=== PATIENT | male | born 1995 | race American Indian/Alaskan Native ===

== ENCOUNTER 2017-06-02 19:33 | Emergency (ER) | payer MEDICARE, OTHER ==
[2017-06-02 19:47] VITALS: BP 141/84; PULSE 80; TEMP 98.1; O2SAT 99
--- NOTE | 2017-06-02 19:59 | C.PDOC ---
History Of Present Illness 21 y/o male c/o funny sensation in penis for a few days with clear discharge. pt had unprotected sex several weeks ago. hx gonorrhea in past. no fever or chills. pt also reports skin lesions in pubic area for several months. Time Seen by Provider: 06/02/17 19:56 Chief Complaint (Nursing): Male Genitourinary History/Exam Limitations: no limitations Onset/Duration Of Symptoms: Days Current Symptoms Are (Timing): Still Present Severity: Mild Quality Of Discomfort: Other (tingling) Associated Symptoms: denies: Fever, Chills, Urinary Symptoms Past Medical History Reviewed: Historical Data, Nursing Documentation, Vital Signs Vital Signs: Last Vital Signs Temp 98.1 F 06/02/17 19:43 Pulse 80 06/02/17 19:43 Resp 20 06/02/17 21:39 BP 141/84 06/02/17 19:43 Pulse Ox 99 06/02/17 21:28 - Medical History PMH: Sexually Transmitted Disease (gonorrhea) Denies: Diabetes, Hepatitis, HIV, HTN, Seizures Family History: States: Unknown Family Hx - Social History Hx Alcohol Use: Yes Hx Substance Use: Yes - Immunization History Hx Tetanus Toxoid Vaccination: No Hx Influenza Vaccination: Yes Hx Pneumococcal Vaccination: No Review Of Systems Constitutional: Negative for: Fever, Chills Gastrointestinal: Negative for: Nausea, Vomiting, Abdominal Pain Genitourinary: Positive for: Penile Discharge. Negative for: Dysuria, Frequency Skin: Positive for: Lesions (pubic region) Physical Exam - Physical Exam Appears: Non-toxic, No Acute Distress Skin: Warm, Dry, Other (3 1-2 mm raised possible skin tags in pubic hair, 2 on right side, 1 on left, chaperoned by MAKENZIE Melendez. ) Gastrointestinal/Abdominal: Soft, No Tenderness Male Genital: No Testicular Tenderness, No Testicular Swelling, No Inguinal Tenderness, No Inguinal Swelling, Circumcised, Other (clear urthethral discharge. chaperoned by MAKENZIE Melendez) ED Course And Treatment O2 Sat by Pulse Oximetry: 99 Medical Decision Making Medical Decision Making: pt with penile discharge after unprotected sex, will treat for sti. pt with skin lesions in pubic area, not vesciular, f/u med clinic. Disposition Counseled Patient/Family Regarding: Diagnosis, Need For Followup - Disposition Referrals: [facility] [Outside] Disposition: HOME/ ROUTINE Disposition Time: 21:27 Condition: GOOD Additional Instructions: Please follow up in medical clinic or with your doctor to have further evaluation for skin lesions. Recommend protected sex - always use condoms. Instructions: Safe Sex (ED), Nonspecific Urethritis in Men (ED) Forms: [facility] (Setswana), General Discharge Instructions - Clinical Impression Clinical Impression: Urethritis
[2017-06-02] MEDS ORDERED: cefTRIAXone (Rocephin) 250 mg Inj IM STA (20:12)
[2017-06-02 20:18] LABS: URINE BILIRUBIN NEGATIVE (NEGATIVE); URINE BLOOD NEGATIVE (NEGATIVE); URINE CLARITY Clear (Clear); URINE GLUCOSE (UA) NORMAL (Normal); URINE LEUKOCYTE ESTERASE NEG Leu/uL (Negative); URINE NITRATE NEGATIVE (NEGATIVE); URINE PROTEIN 1+ mg/dL (NEGATIVE)
[2017-06-02 20:26] LABS: URINE COLOR YELLOW (YELLOW)
[2017-06-02 21:39] VITALS: RESP 20
== END 2017-06-02 21:38 | disposition home or self-care (01) ==
LOC: C.ER 19:33
DX: N34.2 Other urethritis (principal)
CPT/HCPCS: 81001; 87086; 87491; 87591; 96372; 99283; J0696

== ENCOUNTER 2017-06-25 22:11 | Inpatient (IN) | payer MEDICARE, MEDICAID ==
[2017-06-25 23:28] LABS: BASO % 0.2 % (0.0-2.0); EOS % 0.3 % (0.0-4.0); HEMOGLOBIN 13.5 g/dL (12.0-18.0); LYMPH % 35.9 % (20.0-40.0); MEAN CELL VOLUME 84.5 fL (80.0-94.0); MEAN CORPUSCULAR HEMOGLOBIN 27.8 pg (27.0-31.0); MEAN CORPUSCULAR HGB CONC 32.9 g/dL (33.0-37.0); MEAN PLATELET VOLUME 10.1 fL (7.2-11.7); MONO # 0.5 K/uL (0.0-0.8); MONO % 8.8 % (0.0-10.0); NEUT # 3.1 K/uL (1.8-7.0); NEUT % 54.8 % (50.0-75.0); NRBC % 0.1 % (0.0-2.0); RBC 4.85 Mil/uL (4.40-5.90); RED CELL DISTRIBUTION WIDTH 14.6 % (11.5-14.5); WHITE BLOOD COUNT 5.6 K/uL (4.8-10.8)
--- NOTE | 2017-06-25 23:37 | C.PDOC ---
Addendum entered and electronically signed by Josemanuel Leblanc MD 06/26/17 06:46: Addendum Addendum: 06/26/17 06:45 Patient refused voluntary admission, [place] [facility] [place]. Original Note: History Of Present Illness <Steve Thurston - Last Filed: 06/25/17 23:44> <Josemanuel Leblanc - Last Filed: 06/26/17 06:45> <Jonna De León - Last Filed: 06/26/17 07:57> 22 year old male brought in by police after having an altercation with his stepfather who kicked him out of the house. Allegedly, patient has a HX of schizophrenia and reports questionable compliance with his medications. Denies suicidal ideation, homicidal ideation, or substance abuse. (Steve Thurston) History Per: Patient History/Exam Limitations: no limitations Onset/Duration Of Symptoms: Hrs Current Symptoms Are (Timing): Still Present Suicide/Self Injury Attempted (Context): None Associated Symptoms: denies: Depression, Suicidal Thoughts, Suicidal Plan Involuntary Hold By: None Recent travel outside of the [place]: No <Steve Thurston - Last Filed: 06/25/17 23:44> <Josemanuel Leblanc - Last Filed: 06/26/17 06:45> <Jonna De León - Last Filed: 06/26/17 07:57> Time Seen by Provider: 06/25/17 22:39 Chief Complaint (Nursing): Psychiatric Evaluation Past Medical History Reviewed: Historical Data, Nursing Documentation, Vital Signs - Medical History PMH: Sexually Transmitted Disease (gonorrhea) Family History: States: Unknown Family Hx - Social History Hx Alcohol Use: Yes Hx Substance Use: Yes - Immunization History Hx Tetanus Toxoid Vaccination: No Hx Influenza Vaccination: Yes Hx Pneumococcal Vaccination: No <Steve Thurston - Last Filed: 06/25/17 23:44> Vital Signs: Last Vital Signs Temp 97.9 F 06/26/17 07:38 Pulse 73 06/26/17 07:38 Resp 16 06/26/17 07:38 BP 142/84 06/26/17 07:38 Pulse Ox 99 06/26/17 07:38 Review Of Systems Constitutional: Negative for: Fever, Chills Cardiovascular: Negative for: Chest Pain, Palpitations Respiratory: Negative for: Cough, Shortness of Breath Gastrointestinal: Negative for: Nausea, Vomiting, Abdominal Pain Psych: Negative for: Anxiety, Depression, Suicidal ideation, Other (Homicidal ideation) <Steve Thurston M - Last Filed: 06/25/17 23:44> Physical Exam - Physical Exam Appears: Non-toxic, No Acute Distress Skin: Normal Color, Warm, Dry Head: Atraumatic, Normacephalic Eye(s): bilateral: Normal Inspection Oral Mucosa: Moist Chest: Symmetrical, No Tenderness Cardiovascular: Rhythm Regular Respiratory: Normal Breath Sounds, No Rales, No Rhonchi, No Wheezing Gastrointestinal/Abdominal: Soft, No Tenderness Neurological/Psych: Oriented x3, Normal Speech <Steve Thurston M - Last Filed: 06/25/17 23:44> ED Course And Treatment - Laboratory Results Result Diagrams: 06/25/17 23:23 06/25/17 23:23 O2 Sat by Pulse Oximetry: 99 (Room air) Pulse Ox Interpretation: Normal <Steve Thurston Steph - Last Filed: 06/25/17 23:44> - Laboratory Results Result Diagrams: 06/25/17 23:23 06/25/17 23:23 ECG: Interpreted By Me, Viewed By Me ECG Rhythm: Sinus Rhythm ECG Interpretation: Normal, No Acute Changes Interpretation Of ECG: NSR withg sinus arrhythmia, normal tracings Rate From EC Pulse Ox Interpretation: Normal - Radiology CXR: Interpreted by Me, Viewed By Me CXR Interpretation: Yes: No Acute Disease, Other (normal chest film). No: Infiltrates Progress Note: Patient is medically cleared for psych. evaluation. Presently stable and [place] [facility] [place]. <Josemanuel Leblanc R - Last Filed: 06/26/17 06:45> - Laboratory Results Result Diagrams: 06/25/17 23:23 06/25/17 23:23 <Jonna De León M - Last Filed: 06/26/17 07:57> Medical Decision Making <Steve Thurston M - Last Filed: 06/25/17 23:44> <Josemanuel Leblanc - Last Filed: 06/26/17 06:45> <Jonna De León M - Last Filed: 06/26/17 07:57> Medical Decision Making: Impression: Mood disorder Plan: * Blood work * Urinalysis 23:44 - Patient is medically cleared for crisis eval. (Steve Thurston) Disposition <Steve Thurston M - Last Filed: 06/25/17 23:44> - Disposition Disposition Time: 07:00 <Josemanuel Leblanc - Last Filed: 06/26/17 06:45> <Jonna De León - Last Filed: 06/26/17 07:57> - Disposition Condition: STABLE Forms: [facility] (Azeri) - Clinical Impression Clinical Impression: Schizophrenia - Scribe Statement The provider has reviewed the documentation as recorded by the Scribe <Steve Thurston - Last Filed: 06/25/17 23:44> <Josemanuel Leblanc - Last Filed: 06/26/17 06:45> <Jonna De León - Last Filed: 06/26/17 07:57> - Scribe Statement Raul Prince All medical record entries made by the Scribe were at my direction and personally dictated by me. I have reviewed the chart and agree that the record accurately reflects my personal performance of the history, physical exam, medical decision making, and the department course for this patient. I have also personally directed, reviewed, and agree with the discharge instructions and disposition. (Steve Thurston) Addendum <Steve Thurston M - Last Filed: 06/25/17 23:44> <Jonna De León - Last Filed: 06/26/17 07:57> Addendum: 06/26/17 07:55 Patient endorsed to me by Dr. Leblanc at the end of his shift. Patient sleeping, was medicated for agitation. She is coherent, states she was trying to see her kids yesterday and the dry starch operator didn't let her. This spiked her agitation. Denies any medical or phych hx. Sleeping comfortably no signs of trauma, chest clear, abdomen soft. Pending further eval and final dispo by crisis. (Jonna De León)
[2017-06-25 23:38] LABS: SQUAMOUS EPITHIAL < 1 /hpf (0-5); URINE BACTERIA RARE (<OCC); URINE BILIRUBIN NEGATIVE (NEGATIVE); URINE BLOOD NEGATIVE (NEGATIVE); URINE CLARITY Clear (Clear); URINE COLOR Yellow (YELLOW); URINE GLUCOSE (UA) NORMAL (Normal); URINE LEUKOCYTE ESTERASE NEG Leu/uL (Negative); URINE NITRATE NEGATIVE (NEGATIVE); URINE PROTEIN 1+ mg/dL (NEGATIVE)
[2017-06-25 23:40] LABS: ALB/GLOB RATIO 1.4 (1.0-2.1); ALBUMIN 4.4 g/dL (3.5-5.0); ALT/SGPT 43 U/L (21-72); AST/SGOT 22 U/L (17-59); BLOOD UREA NITROGEN 11 mg/dL (9-20); CALCIUM 9.2 mg/dl (8.6-10.4); GFR AFRICAN-AMERICAN > 60; GFR NON-AFRICAN AMERICAN > 60
[2017-06-25] MEDS ORDERED: Potassium Chloride 20 mEq/15 ml LIQ UD PO STA (23:43)
[2017-06-25 23:45] LABS: BARBITURATES, UR NEGATIVE (NEGATIVE); OPIATES, UR NEGATIVE (NEGATIVE); PHENCYCLIDINE, UR NEGATIVE (NEGATIVE)
[2017-06-25 23:46] LABS: BENZODIAZEPINES, UR POSITIVE (NEGATIVE)
[2017-06-26] MEDS ORDERED: Potassium Chloride 20 mEq/15 ml LIQ UD ONE (00:19)
--- NOTE | 2017-06-26 08:54 | RAD ---
Chest x-ray two views History: Psychiatric evaluation. Comparison: None available. Findings: No focal infiltrate or effusion. Heart size within normal limits. Impression: No focal infiltrate or effusion.
--- NOTE | 2017-06-26 09:54 | PCM.PSYCH ---
Initial Psychiatric Evaluation - Initial Psychiatric Evaluation Type of Admission: Voluntary Legal Status: Capacity Past Psychiatric History - Past Psychiatric History Previous Treatment History: Inpatient Pertinent Medical Hx (Current Medical&Sleep Prob, Allergies): Allergies Allergy/AdvReac Type Severity Reaction Status Date / Time No Known Allergies Allergy Verified 06/25/17 22:40 No Known Home Med 02/25/15 Review of Systems - Review of Systems All systems: reviewed and no additional remarkable complaints except - Psychiatric Psychiatric: Anxiety, Auditory Hallucinations, Irritability, Paranoia, Visual Hallucinations Mental Status Examination - Personal Presentation Personal Presentation: Looks stated age - Affect Affect: Broad - Motor Activity Motor Activity: Psychomotor Agitation - Reliability in Providing Information Reliability in Providing Information: Poor, due to alteration in thoughts, Poor , due to altered mood - Speech Speech: Disorganized - Mood Mood: Anxious - Formal Thought Process Formal Thought Process: Hallucinations, Delusions, Paranoia, Loosening of associations - Hallucinations/Delusions Hallucinations: Visual, Auditory - Obsessions/Compulsions Obsessions: No Compulsions: No - Cognitive Functions Orientation: Person, Place, Situation, Time Sensorium: Alert Attention/Concentration: Attentive Abstract Thinking: Elsa Estimate of Intelligence: Below average Judgement: Imparied, as evidence by: Poor judgement, Imparied, as evidence by: Lack of insight into illness - Risk Risk: Diminished functioning - Strength & Assets Inventory Strength & Assets Inventory: Family support DSM 5 DX - Smoking Cessation Smoking Cessation Initiated: No
--- NOTE | 2017-06-26 10:36 | PCM.BM ---
<Isela Magdaleno - Last Filed: 06/26/17 10:36> Treatment Plan Problems - Problems identified on initial assessmt Aggression Date Initiated: 06/26/17 Time Initiated: 10:36 Assessment reference: NA Status: Monitor Treatment assets and liabiliti Patient Assests: cooperative, ADL independent Patient Liabilities: live alone, poor support system - Milieu Protocol Maintain good personal hygiene: every shift Encourage regular showers, every shift Remind patient to perform daily oral care, every shift Assist patient to perform ADL's Maintain personal safety: every shift Educate patient to report safety concerns to staff, every shift Monitor environment for contraband/sharps Medication safety: Monitor for expected outcome, potential side effects: every shift, Assess barriers to learning: every shift, Assess readiness for medication education: every shift <Irma Bacon - Last Filed: 06/26/17 10:44> - Diagnosis (1) Schizophrenia Status: Acute Interventions: 06/26/17 10:44 * Assess/adjust medications daily and /or as needed * See patient on an individual basis 7x/week to assess status of hallucinations * Discuss risks, benefits, side effects and alternatives of medications * <Marlene Franco - Last Filed: 06/29/17 11:13> Family Contact Family involvement: Famliy/SO not involved - Goals for Treatment Patient goals for treatment: "A lot of people are trying to hurt my family." Discharge/Continuing Care - Education Needs Education Needs: Patient Medication, Patient Coping Skills, Patient Placement options, Patient Community resources - Discharge Discharge Criteria: Tolerates medication w/o severe side effects, No longer exhibiting s/s of withdrawal, Reduction of target symptoms Discharge to:: Detention - Treatment Team Participation Discussed with Family/SO: No Was Patient/Family/SO present at Treatment Team Meeting: Yes
--- NOTE | 2017-06-26 10:36 | PCM.PSYCH ---
Initial Psychiatric Evaluation - Initial Psychiatric Evaluation Type of Admission: Voluntary Legal Status: Capacity Current Medications: Active Medications Generic Name Dose Route Start Last Admin Trade Name Freq PRN Reason Stop Dose Admin Acetaminophen 650 mg 06/26/17 09:56 Tylenol 325mg Tab PO Q6 PRN Fever >100.4 F Benztropine Mesylate 2 mg 06/26/17 09:56 Cogentin PO Q6 PRN Extra Pyramidal Symptoms Benztropine Mesylate 1 mg 06/26/17 10:00 Cogentin PO BID BELLA Clonazepam 1 mg 06/26/17 10:00 Klonopin PO TID BELLA Divalproex Sodium 500 mg 06/26/17 10:[address] PO BID BELLA Haloperidol 5 mg 06/26/17 09:56 Haldol PO Q8 PRN Moderate Agitation Haloperidol 5 mg 06/26/17 10:00 Haldol PO BID BELLA Haloperidol Lactate 5 mg 06/26/17 09:56 Haldol IM Q8 PRN Moderate Agitation Lorazepam 1 mg 06/26/17 09:56 Ativan IM Q4 PRN Agitation Lorazepam 2 mg 06/26/17 09:56 Ativan PO Q8H PRN Severe Agitation Trazodone HCl 50 mg 06/26/17 22:00 Desyrel PO HS BELLA Past Psychiatric History - Past Psychiatric History Previous Treatment History: Inpatient Pertinent Medical Hx (Current Medical&Sleep Prob, Allergies): Allergies Allergy/AdvReac Type Severity Reaction Status Date / Time No Known Allergies Allergy Verified 06/25/17 22:40 No Known Home Med 02/25/15 Review of Systems - Review of Systems All systems: reviewed and no additional remarkable complaints except - Psychiatric Psychiatric: Anxiety, Auditory Hallucinations, Irritability, Visual Hallucinations. absent: Suicidal Ideation Mental Status Examination - Personal Presentation Personal Presentation: Looks stated age - Affect Affect: Flat, Depressed - Motor Activity Motor Activity: Psychomotor Agitation - Reliability in Providing Information Reliability in Providing Information: Poor, due to alteration in thoughts, Poor , due to altered mood - Speech Speech: Disorganized, Incoherent - Mood Mood: Depressed, Anxious - Formal Thought Process Formal Thought Process: Hallucinations, Delusions, Paranoia, Loosening of associations
[2017-06-26] MEDS: Divalproex 500 mg DR Tab PO SCH ×3 (10:51→18:01)
--- NOTE | 2017-06-26 12:40 | PCM.PSYCH ---
Initial Psychiatric Evaluation - Initial Psychiatric Evaluation Type of Admission: Voluntary Legal Status: Capacity Chief Complaint (in patient's own words): hearing voices, agitation History of Present Illness and Precipitating Events: 22 year old AA Male who was voluntary admitted due to hearing voices, paranoia, and becoming agitated. He is currently homeless, unemployed and with an education level of 11th grade. Patient reports he used to live with his sister before she kicked him out due to his paranoia. He was recently hospitalized at [facility] during the summer of 2016. As follow up, he continued with an outpatient program -[facility] in [place]- receiving monthly injections (with no known reaction). Patient does not recall when he received his last injection but states its been several months. Patient reports he came to the hospital yesterday due to hearing voices telling him "to hurt his loved ones". He became agitated and aggressive with his mother' s boyfriend here on the medical floors. He refused voluntary admission. He reports he is not compliant with his medications because it makes him "drool and shake". Denied any suicidal or homicidal ideation. He believes the TV is talking to him. He reports feeling paranoid and fearful of someone hurting him. Patient has poor judgment and insight about his condition. PMHx: Denied Past Psych History: Paranoid Schizophrenia Family Psych Hx: Unknown Current Medications: Active Medications Generic Name Dose Route Start Last Admin Trade Name Freq PRN Reason Stop Dose Admin Acetaminophen 650 mg 06/26/17 09:56 Tylenol 325mg Tab PO Q6 PRN Fever >100.4 F Benztropine Mesylate 2 mg 06/26/17 09:56 Cogentin PO Q6 PRN Extra Pyramidal Symptoms Benztropine Mesylate 1 mg 06/26/17 10:00 06/26/17 11:38 Cogentin PO 1 mg BID BELLA Administration Clonazepam 1 mg 06/26/17 10:00 06/26/17 11:38 Klonopin PO 1 mg TID BELLA Administration Divalproex Sodium 500 mg 06/26/17 10:06/26/17 11:[address] PO 500 mg BID BELLA Administration Haloperidol 5 mg 06/26/17 09:56 Haldol PO Q8 PRN Moderate Agitation Haloperidol 5 mg 06/26/17 10:00 06/26/17 11:38 Haldol PO 5 mg BID BELLA Administration Haloperidol Lactate 5 mg 06/26/17 09:56 Haldol IM Q8 PRN Moderate Agitation Lorazepam 1 mg 06/26/17 09:56 Ativan IM Q4 PRN Agitation Lorazepam 2 mg 06/26/17 09:56 Ativan PO Q8H PRN Severe Agitation Pneumococcal Polyvalent Vaccine 0.5 ml 06/29/17 10:00 Prevnar 13 IM 06/29/17 10:01 .ONCE ONE Trazodone HCl 50 mg 06/26/17 22:00 Desyrel PO HS BELLA Past Psychiatric History - Past Psychiatric History Previous Treatment History: Intensive Outpatient Pertinent Medical Hx (Current Medical&Sleep Prob, Allergies): Allergies Allergy/AdvReac Type Severity Reaction Status Date / Time No Known Allergies Allergy Verified 06/25/17 22:40 No Known Home Med 02/25/15 Review of Systems - Review of Systems All systems: reviewed and no additional remarkable complaints except - Psychiatric Psychiatric: Anxiety, Depression, Difficulty Concentrating, Hallucinations, Paranoia Mental Status Examination - Personal Presentation Personal Presentation: Looks stated age - Affect Affect: Flat, Depressed - Motor Activity Motor Activity: Calm - Reliability in Providing Information Reliability in Providing Information: Poor, due to alteration in thoughts, Poor , due to altered mood - Speech Speech: Disorganized, Incoherent - Mood Mood: Depressed, Anxious - Formal Thought Process Formal Thought Process: Delusions, Paranoia, Loosening of associations - Hallucinations/Delusions Hallucinations: Auditory - Obsessions/Compulsions Obsessions: No Compulsions: No - Cognitive Functions Orientation: Person, Place, Situation, Time Judgement: Imparied, as evidence by: Poor judgement, Imparied, as evidence by: Lack of insight into illness - Risk Risk: Diminished functioning - Limitations Limitations: Other (Homeless) DSM 5 DX - DSM 5 DSM 5 Diagnosis: Schizoaffective Disorder Bipolar Type - Recommended/Plan of Treatment Treatment Recommendations and Plan of Treatment: Schizoaffective Disorder Bipolar Type -CBT -Psychoeducation -Supportive therapy, group therapy, individual therapy -Cogentin 1mg PO BID, Klonopin 1mg PO TID, Depakote 500mg PO BID, Haldol 5mg PO BID, Trazodone 50mg PO QHS -Cogentin, Haldol, Ativan PRN for agitation DW Dr. Teresa Bacon, DO PGY-1
[2017-06-27] MEDS: Divalproex 500 mg DR Tab PO SCH ×2 (10:19→17:11)
--- NOTE | 2017-06-27 10:44 | PCM.PYCHPN ---
Psychiatric Progress Note - Psychiatric Progress Note Patient seen today, length of contact: 15 min Patient Chief Complaint: maki.' Problems Identified/Issues Discussed: Patient seen and evaluated, chart reviewed and discussed with the nurse. Patient remained disorganized and internally preoccupied. He still appears paranoid and delusional. He still reports of hearing voices and remained irritable and agitated. Patient remained isolated, confined and withdrawn. Patient is compliant with medications and denies any side effects. Symptoms are improving but need more time to stabilize. Support and psychoeducation given. Medication Change: No Medical Record Reviewed: Yes Mental Status Examination - Cognitive Function Orientation: Person, Place, Situation, Time Memory: Intact Attention: Poor Concentration: Poor Association: Loose Fund of Knowledge: Poor - Mood Mood: Depressed, Anxious - Affect Affect: Flat, Depressed - Formal Thought Process Formal Thought Process: Hallucinations, Delusions, Paranoia, Loosening of associations - Suicidal Ideation Suicidal Ideation: No - Homicidal Ideation Homicidal Ideation: No Goal/Treatment Plan - Goal/Treatment Plan Need for Continued Stay: Severe depression anxiety, Severe functional impairment Progress Toward Problem(s) and Goals/Treatment Plan: Schizoaffective Disorder Bipolar Type -CBT -Psychoeducation -Supportive therapy, group therapy, individual therapy -Cogentin 1mg PO BID, -Klonopin 1mg PO TID, -Depakote 500mg PO BID, -Haldol 5mg PO BID, -Trazodone 50mg PO QHS -Cogentin, Haldol, Ativan PRN for agitation - Smoking Cessation Smoking Cessation Initiated: No
--- NOTE | 2017-06-28 09:47 | PCM.PYCHPN ---
Psychiatric Progress Note - Psychiatric Progress Note Patient seen today, length of contact: 15 min Patient Chief Complaint: maki.' Problems Identified/Issues Discussed: Patient seen and evaluated, chart reviewed and discussed with the nurse. As per the staff, patient remained paranoid and delusional. He still appears disorganized and internally preoccupied. He reports some improvement in the voices. As the staff remained calm and cooperative and redirectable. However he remained isolated, and withdrawn. He is compliant with medications and denies any side effects. Symptoms are improving but need more time to stabilize. Support and psychoeducation given. Medication Change: Yes (Increase Haldol) Medical Record Reviewed: Yes Mental Status Examination - Cognitive Function Orientation: Person, Place, Situation, Time Memory: Intact Attention: Poor Concentration: Poor Association: Loose Fund of Knowledge: Poor - Mood Mood: Depressed, Anxious - Affect Affect: Constricted, Flat - Formal Thought Process Formal Thought Process: Hallucinations, Delusions, Paranoia, Loosening of associations - Suicidal Ideation Suicidal Ideation: No - Homicidal Ideation Homicidal Ideation: No Goal/Treatment Plan - Goal/Treatment Plan Need for Continued Stay: Severe depression anxiety, Severe functional impairment Progress Toward Problem(s) and Goals/Treatment Plan: Schizoaffective Disorder Bipolar Type -CBT -Psychoeducation -Supportive therapy, group therapy, individual therapy -Cogentin 1mg PO BID, -Klonopin 1mg PO TID, -Depakote 500mg PO BID, -Increase Haldol 10 mg PO BID, -Trazodone 50mg PO QHS -Cogentin, Haldol, Ativan PRN for agitation - Smoking Cessation Smoking Cessation Initiated: No
[2017-06-28] MEDS: Divalproex 500 mg DR Tab PO SCH ×2 (10:23→17:25)
--- NOTE | 2017-06-29 04:22 | CARD ---
APPROVED REPORT EKG Measurement Heart [id number] <Conclusion> Normal sinus rhythm with sinus arrhythmia Normal ECG
[2017-06-29] MEDS: Divalproex 500 mg DR Tab PO SCH ×2 (09:53→17:09)
[2017-06-29] MEDS ORDERED: Pneumoc 13 Val Conjugate Vaccine Inj IM ONE (10:00)
[2017-06-29] MEDS ORDERED: Influenza Vaccine 60 mcg/0.5 mL SYR (4YR UP) IM ONE (10:00)
--- NOTE | 2017-06-29 11:09 | PCM.PYCHPN ---
Psychiatric Progress Note - Psychiatric Progress Note Patient seen today, length of contact: 16 min Patient Chief Complaint: I'm feeling a little better.' Problems Identified/Issues Discussed: Patient seen and evaluated, chart reviewed and discussed with the nurse. Patient started coming out of his room, however he remained disorganized and internally preoccupied. He still appears disheveled and unkempt. He appears to have loose associations and remained paranoid and delusional. He remained calm and cooperative and redirectable. He remained isolated, and withdrawn but some improvement in the voices. He has retracted his 48 hours. He is compliant with medications and denies any side effects. Symptoms are improving but need more time to stabilize. Support and psychoeducation given. Medication Change: Yes (Start Neurontin) Medical Record Reviewed: Yes Mental Status Examination - Cognitive Function Orientation: Person, Place, Situation, Time Memory: Intact Attention: Poor Concentration: Poor Association: Loose Fund of Knowledge: Poor - Mood Mood: Depressed, Anxious - Affect Affect: Constricted, Flat - Formal Thought Process Formal Thought Process: Hallucinations, Delusions, Paranoia, Loosening of associations - Suicidal Ideation Suicidal Ideation: No - Homicidal Ideation Homicidal Ideation: No Goal/Treatment Plan - Goal/Treatment Plan Need for Continued Stay: Severe depression anxiety, Severe functional impairment Progress Toward Problem(s) and Goals/Treatment Plan: Schizoaffective Disorder Bipolar Type -CBT -Psychoeducation -Supportive therapy, group therapy, individual therapy -Cogentin 1mg PO BID, -Klonopin 1mg PO TID, -Depakote 500mg PO BID, -Haldol 10 mg PO BID, -Trazodone 100mg PO QHS -Neurontin 100 mg by mouth 3 times a day -Cogentin, Haldol, Ativan PRN for agitation - Smoking Cessation Smoking Cessation Initiated: No
[2017-06-30] MEDS: Divalproex 500 mg DR Tab PO SCH ×2 (09:09→17:27)
[2017-07-01] MEDS: Divalproex 500 mg DR Tab PO SCH ×2 (10:28→18:54)
[2017-07-02] MEDS: Divalproex 500 mg DR Tab PO SCH ×2 (09:42→17:30)
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
[2017-07-03 06:19] VITALS: O2SAT 97
[2017-07-03] MEDS: Divalproex 500 mg DR Tab PO SCH ×2 (10:34→17:44)
[2017-07-03] MEDS ORDERED: Magnesium Hydroxide Susp 30 ml UD PO ONE ×2 (16:18→17:32)
--- NOTE | 2017-07-03 16:27 | PCM.PYCHPN ---
Psychiatric Progress Note - Psychiatric Progress Note Patient seen today, length of contact: 17 min Patient Chief Complaint: "still hearing voices" Problems Identified/Issues Discussed: The patient was seen and examined in his room, chart was reviewed and discussed with staff. The patient reports that their are spirits inside of him and that they are telling him that they will hurt him and his family. He says that the spirits say that they are going to poison me and take away my life insurance. He reports in the past he has seen them writing my name all over the place but they stop and get quiet once I am here [hospital]. He states that they get quiet because they know there will be a time for me to come out of the hospital. The patient reports that he wants to go home so he can go back to school to study zoology. He reports that he is not sleeping well and asks to get rid of the synagogue in his family. The patient is awake and appears slightly disheveled but has changed out of the hospital gown into his own clothes. The pt has a blunted mood and flat affect and does not maintain eye contact. He displays thought blocking and speaks in a very soft voice. The patient is internally preoccupied and demonstrates responding to internal stimuli. The patient lacks insight, good judgment, and maintains fair attention during encounter. The patient is compliant with his medications and denies and side effects. Pts symptoms are improving, but requires more time to stabilize. Support and psychoeducation given. Medication Change: Yes (Start Neurontin) Medical Record Reviewed: Yes Mental Status Examination - Cognitive Function Orientation: Person, Place, Situation, Time Memory: Intact Attention: Poor Concentration: Poor Association: Loose Fund of Knowledge: Poor Decription of patient's judgement and insights: poor - Mood Mood: Depressed, Anxious - Affect Affect: Constricted, Flat - Speech Speech: Soft - Formal Thought Process Formal Thought Process: Hallucinations, Delusions, Paranoia, Loosening of associations - Suicidal Ideation Suicidal Ideation: No - Homicidal Ideation Homicidal Ideation: No Goal/Treatment Plan - Goal/Treatment Plan Need for Continued Stay: Severe depression anxiety, Discharge may exacerbated symptoms, Severe functional impairment Progress Toward Problem(s) and Goals/Treatment Plan: Schizoaffective Disorder Bipolar Type -CBT -Psychoeducation -Supportive therapy, group therapy, individual therapy -Cogentin 1mg PO BID, -Depakote 500mg PO BID, -Haldol 10 mg PO BID, -Trazodone 100mg PO QHS -Neurontin 100 mg by mouth 3 times a day -Zion Garcia, Ativan PRN for agitation - Monitor for improvement - Haldol Decanoate 50 mg I/M
[2017-07-04] MEDS: Divalproex 500 mg DR Tab PO SCH ×2 (09:42→17:06)
--- NOTE | 2017-07-04 14:26 | PCM.PYCHPN ---
Psychiatric Progress Note - Psychiatric Progress Note Patient seen today, length of contact: 17 min Patient Chief Complaint: "I'm not hearing voices today" Problems Identified/Issues Discussed: The patient was seen and examined in his room, chart was reviewed and discussed with staff. The patient reports that he is not hearing voices today and that makes him feel relaxed. The patient states that he wants to work on creating a "positive state of mind". The patient reports no difficultly sleeping or eating and no side effects of the injections he received. The patient reports that he wants to go home because people here are getting "sick with colds" He says that he also wants to leave so he can go back to school. He reports that "I am going though a lot of stuff but don't know how to deal with it." He also asked how to "get rid of christianity" because "I want my family to be safe...but now I've said too much." The patient is awake and appears disheveled. The pt has a blunted mood and flat affect and does not maintain eye contact. He displays thought blocking and speaks in a very soft voice. The patient maintains fair attention during encounter. The patient is compliant with his medications and denies and side effects. Pts symptoms are improving, but requires more time to stabilize. Support and psychoeducation given. Medication Change: Yes (Start Neurontin) Medical Record Reviewed: Yes Mental Status Examination - Cognitive Function Orientation: Person, Place, Situation, Time Memory: Intact Attention: WNL Concentration: Poor Association: Loose Fund of Knowledge: Poor Decription of patient's judgement and insights: poor - Mood Mood: Depressed, Anxious - Affect Affect: Constricted, Flat - Speech Speech: Soft - Formal Thought Process Formal Thought Process: Hallucinations, Delusions, Paranoia, Loosening of associations - Suicidal Ideation Suicidal Ideation: No - Homicidal Ideation Homicidal Ideation: No Goal/Treatment Plan - Goal/Treatment Plan Need for Continued Stay: Severe depression anxiety, Discharge may exacerbated symptoms, Severe functional impairment Progress Toward Problem(s) and Goals/Treatment Plan: Schizoaffective Disorder Bipolar Type -CBT -Psychoeducation -Supportive therapy, group therapy, individual therapy -Cogentin 1mg PO BID, -Depakote 500mg PO BID, -Haldol 10 mg PO BID, -Trazodone 100mg PO QHS -Neurontin 100 mg by mouth 3 times a day -Reza Garciadol, Ativan PRN for agitation - Monitor for improvement - Haldol Decanoate 50 mg I/M
[2017-07-04] MEDS ORDERED: Magnesium Hydroxide Susp 30 ml UD PO ONE ×2 (19:02→20:29)
[2017-07-05 06:48] VITALS: RESP 18
[2017-07-05] MEDS: Divalproex 500 mg DR Tab PO SCH ×2 (10:15→16:59)
--- NOTE | 2017-07-05 13:27 | PCM.PYCHPN ---
Psychiatric Progress Note - Psychiatric Progress Note Patient seen today, length of contact: 16 min Patient Chief Complaint: "I'm alright" Problems Identified/Issues Discussed: Patient reports that he had a bad dream last night that woke him up but cannot remember what it was about. He reports feeling better. The patient denies auditory and visual hallucinations. He reports sx of blurry vision, back pain, and I think Im going bald. No other complaints. The patient says he is still concerned about mosque but he would like to go home tomorrow so he can go back to school. The patient is awake and appears disheveled. The pt has a blunted mood and flat affect and does not maintain eye contact. He displays thought blocking and speaks in a very soft voice. The patient maintains fair attention during encounter. The patient is compliant with his medications and denies and side effects. Pts symptoms are improving, but requires more time to stabilize. Support and psychoeducation given. Medication Change: Yes (Start Neurontin) Medical Record Reviewed: Yes Mental Status Examination - Cognitive Function Orientation: Person, Place, Situation, Time Memory: Intact Attention: Poor Concentration: Poor Association: Loose Fund of Knowledge: Poor Decription of patient's judgement and insights: poor - Mood Mood: Depressed, Anxious - Affect Affect: Constricted, Flat - Speech Speech: Soft - Formal Thought Process Formal Thought Process: Delusions, Paranoia, Loosening of associations - Suicidal Ideation Suicidal Ideation: No - Homicidal Ideation Homicidal Ideation: No Goal/Treatment Plan - Goal/Treatment Plan Need for Continued Stay: Severe depression anxiety, Discharge may exacerbated symptoms, Severe functional impairment Progress Toward Problem(s) and Goals/Treatment Plan: Schizoaffective Disorder Bipolar Type -CBT -Psychoeducation -Supportive therapy, group therapy, individual therapy -Cogentin 1mg PO BID, -Depakote 500mg PO BID, -Haldol 10 mg PO BID, -Trazodone 100mg PO QHS -Neurontin 100 mg by mouth 3 times a day -Cogentin, Haldol, Ativan PRN for agitation - Monitor for improvement - Haldol Decanoate 50 mg I/M
[2017-07-06 06:46] VITALS: BP 104/63; PULSE 80; TEMP 98.3
[2017-07-06] MEDS: Divalproex 500 mg DR Tab PO SCH (09:34)
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
== END 2017-07-06 11:55 | disposition home or self-care (01) | DRG 885 ==
LOC: C.ER 22:11 → C.5E 06-26 08:50
PROVIDERS: ADMIT Psychiatry & Neurology Psychiatry; ATTEND Psychiatry & Neurology Psychiatry
PROC: GZHZZZZ Group Psychotherapy (ICD-10-PCS; principal; 2017-06-26)
PROC: GZ58ZZZ Individual Psychotherapy, Cognitive-Behavioral (ICD-10-PCS; 2017-06-26)
PROC: GZ56ZZZ Individual Psychotherapy, Supportive (ICD-10-PCS; 2017-06-26)
DX: F25.0 Schizoaffective disorder, bipolar type (principal); F39 Unspecified mood [affective] disorder; Z59.0 Homelessness; R45.1 Restlessness and agitation; G47.00 Insomnia, unspecified

== ENCOUNTER 2017-11-16 17:19 | Emergency (ER) | payer MEDICARE, OTHER ==
[2017-11-16 17:30] VITALS: O2SAT 98
--- NOTE | 2017-11-16 18:24 | C.PDOC ---
History Of Present Illness 22-year-old male presents to the ED via ambulance for evaluation of alcohol and marijuana use today. Patient has had many prior visits concerning alcohol abuse and schizophrenia. Patient states he feels nauseaous. He denies suicidal/ homicidal ideation at this time. Time Seen by Provider: 11/16/17 18:05 Chief Complaint (Nursing): Substance Abuse History Per: Patient History/Exam Limitations: no limitations Onset/Duration Of Symptoms: Hrs Current Symptoms Are (Timing): Still Present Suicide/Self Injury Attempted (Context): None Modifying Factor(s): Alcohol, Marijuana Associated Symptoms: denies: Suicidal Thoughts, Suicidal Plan Involuntary Hold By: None Recent travel outside of the [place]: No Additional History Per: Patient Past Medical History Reviewed: Historical Data, Nursing Documentation, Vital Signs Vital Signs: Last Vital Signs Temp 98.2 F 11/16/17 17:57 Pulse 75 11/16/17 18:27 Resp 18 11/16/17 18:27 BP 114/64 11/16/17 18:27 Pulse Ox 98 11/16/17 18:27 - Medical History PMH: Schizophrenia, Sexually Transmitted Disease (gonorrhea) Denies: Diabetes, Hepatitis, HIV, HTN, Chronic Kidney Disease, Seizures Surgical History: No Surg Hx - [facility] GROUP PSYCHOTHERAPY (06/26/17) INDIVIDUAL PSYCHOTHERAPY, COGNITIVE-BEHAVIORAL (06/26/17) INDIVIDUAL PSYCHOTHERAPY, SUPPORTIVE (06/26/17) Family History: States: Unknown Family Hx - Social History Hx Alcohol Use: Yes Hx Substance Use: Yes - Immunization History Hx Tetanus Toxoid Vaccination: No Hx Influenza Vaccination: Yes Hx Pneumococcal Vaccination: No Review Of Systems Psych: Positive for: Other (alcohol and marijuana ). Negative for: Suicidal ideation Physical Exam - Physical Exam Appears: Non-toxic, No Acute Distress Skin: Normal Color, Warm, Dry Head: Atraumatic, Normacephalic Eye(s): bilateral: Normal Inspection Oral Mucosa: Moist, Other (alcohol on breath ) Neck: Supple Chest: Symmetrical, No Deformity, No Tenderness Cardiovascular: Rhythm Regular, No Murmur Respiratory: Normal Breath Sounds, No Rales, No Rhonchi, No Wheezing Extremity: Normal ROM, Capillary Refill (less than 2 seconds ) Neurological/Psych: Oriented x3, Normal Speech, Normal Cognition ED Course And Treatment O2 Sat by Pulse Oximetry: 98 (on RA) Pulse Ox Interpretation: Normal Progress Note: Yulissa ODOM administered. Reevaluation Time: 22:39 Reassessment Condition: Improved Medical Decision Making Medical Decision Making: alcohol and marijuana abuse Disposition Doctor Will See Patient In The: Office Counseled Patient/Family Regarding: Studies Performed, Diagnosis - Disposition Disposition: HOME/ ROUTINE Disposition Time: 22:40 Condition: GOOD Forms: [facility] (Lao) - Clinical Impression Clinical Impression: Alcohol intoxication, Drug abuse - Scribe Statement The provider has reviewed the documentation as recorded by the Scribe (Sarai Stone) Provider Attestation: All medical record entries made by the Scribe were at my direction and personally dictated by me. I have reviewed the chart and agree that the record accurately reflects my personal performance of the history, physical exam, medical decision making, and the department course for this patient. I have also personally directed, reviewed, and agree with the discharge instructions and disposition.
[2017-11-16 22:54] VITALS: BP 100/76; PULSE 81; RESP 20; TEMP 98
== END 2017-11-16 22:54 | disposition home or self-care (01) ==
LOC: C.ER 17:19
DX: F10.129 Alcohol abuse with intoxication, unspecified (principal); F12.10 Cannabis abuse, uncomplicated; Y90.9 Presence of alcohol in blood, level not specified

== ENCOUNTER 2018-04-08 21:12 | Emergency (ER) | payer MEDICARE, OTHER ==
--- NOTE | 2018-04-08 21:46 | C.PDOC ---
History Of Present Illness 22 year old male presents to the ER for psych evaluation, states he is hearing voices. Denies any other complaints at this time. <Jamshid Lyons - Last Filed: 04/08/18 22:30> History Per: Patient History/Exam Limitations: no limitations Onset/Duration Of Symptoms: Hrs Current Symptoms Are (Timing): Still Present Suicide/Self Injury Attempted (Context): None Modifying Factor(s): None Associated Symptoms: Other (Hearing voices). denies: Suicidal Thoughts Involuntary Hold By: None Recent travel outside of the [place]: No <Jamshid Lyons - Last Filed: 04/08/18 22:30> <Colin Saenz - Last Filed: 04/09/18 05:34> Time Seen by Provider: 04/08/18 21:42 Chief Complaint (Nursing): Psychiatric Evaluation Past Medical History Reviewed: Historical Data, Nursing Documentation, Vital Signs Vital Signs: Last Vital Signs Temp 99.0 F 04/08/18 21:16 Pulse 108 H 04/08/18 21:16 Resp 18 04/08/18 21:16 BP 136/90 04/08/18 21:16 Pulse Ox 98 04/08/18 21:16 - Medical History PMH: Anxiety, Schizophrenia, Sexually Transmitted Disease (gonorrhea) Denies: Diabetes, Hepatitis, HIV, HTN, Chronic Kidney Disease, Seizures - [facility] GROUP PSYCHOTHERAPY (06/26/17) INDIVIDUAL PSYCHOTHERAPY, COGNITIVE-BEHAVIORAL (06/26/17) INDIVIDUAL PSYCHOTHERAPY, SUPPORTIVE (06/26/17) Family History: States: Unknown Family Hx - Social History Hx Alcohol Use: Yes Hx Substance Use: Yes - Immunization History Hx Tetanus Toxoid Vaccination: No Hx Influenza Vaccination: Yes Hx Pneumococcal Vaccination: No <Jamshid Lyons - Last Filed: 04/08/18 22:30> Vital Signs: Last Vital Signs Temp 98.5 F 04/09/18 00:37 Pulse 75 04/09/18 00:37 Resp 20 04/09/18 00:37 BP 125/82 04/09/18 00:37 Pulse Ox 98 04/09/18 00:37 - [facility] Procedures GROUP PSYCHOTHERAPY (06/26/17) INDIVIDUAL PSYCHOTHERAPY, COGNITIVE-BEHAVIORAL (06/26/17) INDIVIDUAL PSYCHOTHERAPY, SUPPORTIVE (06/26/17) <Colin Saenz - Last Filed: 04/09/18 05:34> Review Of Systems Constitutional: Negative for: Fever, Chills Cardiovascular: Negative for: Chest Pain, Palpitations Respiratory: Negative for: Cough, Shortness of Breath Gastrointestinal: Negative for: Nausea, Vomiting Psych: Positive for: Other (Hearing voices). Negative for: Suicidal ideation <CristophershwethaJamshid - Last Filed: 04/08/18 22:30> Physical Exam - Physical Exam Appears: Non-toxic Skin: Normal Color, Warm, Dry Head: Atraumatic, Normacephalic Eye(s): bilateral: Normal Inspection Oral Mucosa: Moist Neck: Normal, Supple Chest: Symmetrical, No Tenderness Cardiovascular: Rhythm Regular Respiratory: Normal Breath Sounds, No Rales, No Rhonchi, No Wheezing Gastrointestinal/Abdominal: Soft, No Tenderness Neurological/Psych: Oriented x3, Normal Speech <CristophershwethaJamshid Last Filed: 04/08/18 22:30> ED Course And Treatment O2 Sat by Pulse Oximetry: 98 (Room air) Pulse Ox Interpretation: Normal <CristopherCheltia tadeoil Last Filed: 04/08/18 22:30> - Laboratory Results Result Diagrams: 04/08/18 22:26 04/08/18 22:26 ECG: Interpreted By Me, Viewed By Me ECG Rhythm: Sinus Rhythm, Nonspecific Changes Pulse Ox Interpretation: Normal - Radiology CXR: Viewed By Me CXR Interpretation: No: Infiltrates, Fracture, Pnemothorax Progress Note: patient is medically cleared for [facility] Screeners <Colin Saenz Last Filed: 04/09/18 05:34> Medical Decision Making Medical Decision Making: Blood work and urinalysis ordered. Crisis notified. <CristopherChelita tadeoil - Last Filed: 04/08/18 22:30> Disposition <CristopherChelita tadeoil Last Filed: 04/08/18 22:30> Counseled Patient/Family Regarding: Studies Performed, Diagnosis - Disposition Disposition Time: 01:00 <DanySummergladys - Last Filed: 04/09/18 05:34> - Disposition Condition: FAIR Forms: [facility] (Qatari) - Clinical Impression Clinical Impression: Schizophrenia - Scribe Statement The provider has reviewed the documentation as recorded by the Scribe Raul Prince All medical record entries made by the Scribe were at my direction and personally dictated by me. I have reviewed the chart and agree that the record accurately reflects my personal performance of the history, physical exam, medical decision making, and the department course for this patient. I have also personally directed, reviewed, and agree with the discharge instructions and disposition. <Jamshid Lyons - Last Filed: 04/08/18 22:30> Physician Patient Turnover Patient Signed Over To: Marleny Caldera Handoff Comments: pending [facility] screeners and dispostion <Colin Saenz - Last Filed: 04/09/18 05:34>
[2018-04-08 22:32] LABS: BASO # 0.1 K/uL (0.0-0.2); EOS # 0.1 K/uL (0.0-0.7); EOS % 0.9 % (0.0-4.0); HEMOGLOBIN 12.3 g/dL (12.0-18.0); LYMPH # 2.9 K/uL (1.0-4.3); LYMPH % 47.7 % (20.0-40.0); MEAN CELL VOLUME 84.1 fL (80.0-94.0); MEAN CORPUSCULAR HEMOGLOBIN 27.4 pg (27.0-31.0); MEAN CORPUSCULAR HGB CONC 32.6 g/dL (33.0-37.0); MEAN PLATELET VOLUME 8.8 fL (7.2-11.7); MONO # 0.5 K/uL (0.0-0.8); MONO % 8.9 % (0.0-10.0); NEUT # 2.5 K/uL (1.8-7.0); NEUT % 41.5 % (50.0-75.0); NRBC % 0.1 % (0.0-2.0); RBC 4.5 Mil/uL (4.40-5.90); RED CELL DISTRIBUTION WIDTH 14.4 % (11.5-14.5)
[2018-04-08 22:47] LABS: SQUAMOUS EPITHIAL < 1 /hpf (0-5); URINE BILIRUBIN NEGATIVE (NEGATIVE); URINE BLOOD NEGATIVE (NEGATIVE); URINE CLARITY Clear (Clear); URINE COLOR Yellow (YELLOW); URINE GLUCOSE (UA) NORMAL (Normal); URINE LEUKOCYTE ESTERASE NEG Leu/uL (Negative); URINE PROTEIN NEGATIVE (NEGATIVE)
[2018-04-08 22:48] LABS: ALB/GLOB RATIO 1.5 (1.0-2.1); ALBUMIN 4.1 g/dL (3.5-5.0); ALT/SGPT 16 U/L (21-72); AST/SGOT 25 U/L (17-59); BLOOD UREA NITROGEN 17 mg/dL (9-20); CALCIUM 8.9 mg/dl (8.6-10.4); GFR NON-AFRICAN AMERICAN > 60
[2018-04-08 23:04] LABS: BARBITURATES, UR NEGATIVE (NEGATIVE); BENZODIAZEPINES, UR NEGATIVE (NEGATIVE); OPIATES, UR NEGATIVE (NEGATIVE); PHENCYCLIDINE, UR NEGATIVE (NEGATIVE)
[2018-04-09 02:57] VITALS: RESP 16
[2018-04-09 06:38] VITALS: BP 144/90; PULSE 90; TEMP 98.2; O2SAT 99
--- NOTE | 2018-04-09 08:45 | RAD ---
Date of service: 04/09/2018 HISTORY: Psychiatric evaluation COMPARISON: No prior. FINDINGS: LUNGS: No active pulmonary disease. PLEURA: No significant pleural effusion identified, no pneumothorax apparent. CARDIOVASCULAR: No aortic atherosclerotic calcification present. Normal cardiac size. OSSEOUS STRUCTURES: No significant abnormalities. VISUALIZED UPPER ABDOMEN: Normal. OTHER FINDINGS: None. IMPRESSION: No active disease.
--- NOTE | 2018-04-10 12:30 | CARD ---
APPROVED REPORT Date of service: 04/09/2018 EKG Measurement Heart [id number] <Conclusion> Normal sinus rhythm with sinus arrhythmia Normal ECG
== END 2018-04-09 06:40 | disposition home or self-care (01) ==
LOC: C.ER 21:12
DX: F20.9 Schizophrenia, unspecified (principal)
CPT/HCPCS: 71045; 80053; 81001; 83735; 84100; 85025; 93005; 99285; G0480